=== PATIENT | female | born 1960 | race Caucasian/White ===

== ENCOUNTER → 2017-01-15 | Outpatient (CLI) | payer MEDICARE ==
[~2017-01-15] MED LIST: ALPRAZOLAM0.5 MG PO; ASPIR 8181 MG PO; ASPIR-TRIN325 MG PO; CLARITIN10 MG PO; COLESTIPOL HCL1 GM PO; ESTRACE0.5 MG PO; FARXIGA10 MG PO; FLEXERIL 10 MG10 MG PO; FLONASE 0.05% N16 GM; GLUCOTROL XL 22.5 MG PO; IBUPROFEN800 MG PO; JANUMET 50-1,01 EACH PO; K-DUR TAB 10 M10 MEQ PO; KEFLEX500 MG PO; MAXALT10 MG PO; NEURONTIN 400400 MG PO; NORCO 10-325 T1 EACH PO; PRILOSEC OTC20 MG PO; PROVENTIL HFA 61 INH INH; SEROQUEL100 MG PO; SYNTHROID88 MCG PO; TOPROL XL 25 MG25 MG PO; TRILEPTAL150 MG PO; VITAMIN C 500500 MG PO; VITAMIN D250000 UNIT PO; VOLTAREN100 GM TP; WELLBUTRIN SR150 MG PO; ZOFRAN4 MG PO; ZOFRAN8 MG PO; ZYLOPRIM100 MG PO
== END ==
LOC: KOH-I 13:00
DX: M81.0 Age-related osteoporosis without current pathological fracture (principal); R93.7 Abnormal findings on diagnostic imaging of other parts of musculoskeletal system
CPT/HCPCS: 73718; 77080